=== PATIENT | female | born 1960 | race Caucasian/White ===

== ENCOUNTER 2017-02-02 20:45 | Inpatient (IN) | payer OTHER ==
--- NOTE | ~2017-02-02 | HP ---
History And Physical [address] [address] NAME: CHRISTINE YORK : 56 STATUS : ADM IN PAT#: [id number] AGE: 56 ADM/REG DATE : 02/03/17 MR#: [id number] REPORT SERV DATE: 02/03/17 DICTATED BY: HALEY NEAL DATE: 02/03/17 REPORT STATUS : Draft TRANSCRIBED BY: MODL DATE: 02/03/17 DATE OF ADMISSION: 02/03/2017 CHIEF COMPLAINT: A 56-year-old female, presenting with severe nausea, vomiting, abdominal pain, and uncontrolled blood sugars. HISTORY OF PRESENT ILLNESS: The patient's history was obtained through an interview with the patient and coupled with review of [facility] and [facility] medical records. The patient leading up to admission became increasingly ill with nausea, uncontrolled vomiting, and abdominal pain. She describes epigastric pain, "excruciating," 11/10 severity, without radiation, felt in the epigastric portion of her abdomen. The pain was actually relieved when she would vomit. She has had nausea on and off for several months with occasional feeling of early satiety. No shortness of breath. No chest pain. No cough. She felt lightheaded as if she might pass out, has felt very weak. She had a few episodes of diarrhea for about two days. She has been having recurrent urinary tract infections for several months as well, on several courses of Macrobid, but she has persistent dysuria and urinary frequency. She also has quite severe reflux symptoms. She admits her diabetes has been very poorly controlled recently with blood sugars often over 400. REVIEW OF SYSTEMS: Otherwise, 14-point review of systems was obtained and was negative. PAST MEDICAL HISTORY: 1. Peptic ulcer disease. 2. Diabetes, seen by Dr. Gonzales. 3. Colon polyps, seen by Dr. Ricci. 4. Asthma. 5. Negative cardiac stress test in 2008. PAST SURGICAL HISTORY: 1. Melanoma in 2003. 2. Cholecystectomy and appendectomy. 3. Hysterectomy. 4. Anal fistulotomy. History And Physical [address] [address] NAME: CHRISTINE YORK : 56 STATUS : ADM IN PAT#: [id number] AGE: 56 ADM/REG DATE : 02/03/17 MR#: [id number] REPORT SERV DATE: 02/03/17 DICTATED BY: HALEY NEAL DATE: 02/03/17 REPORT STATUS : Draft TRANSCRIBED BY: JAZMIN DATE: 02/03/17 ALLERGIES: STATINS. SOCIAL HISTORY: No tobacco abuse. No alcohol abuse. She is . Has children. Raises a 16-year-old granddaughter. Lives in [place], [place]. FAMILY HISTORY: Coronary artery disease. Father with CABG. Mother with breast cancer. CURRENT MEDICATIONS: Include vitamin D, Nexium 20 mg p.o. b.i.d., Diflucan 150 mg p.o. twice a week, Amaryl 2 mg with breakfast, Advil p.r.n., sliding-scale insulin, Tresiba 40 to 60 units subcutaneous at bedtime, levothyroxine 150 mcg p.o. daily, losartan 100 mg p.o. daily, metformin 500 mg in the morning and 1000 mg at night, Sanctura 20 mg p.o. b.i.d., and cranberry extract. PHYSICAL EXAMINATION: VITAL SIGNS: Temperature 98.3, pulse 85, blood pressure 147/94, respiratory rate 15, and O2 saturation 99% on room air. GENERAL: A pleasant, cooperative female, describing distress from nausea right now. HEENT: Pupils equal, round, and reactive to light. No conjunctival pallor. No scleral icterus. Nares are patent. Oropharynx is clear of obstruction. Moist mucous membranes. NECK: Trachea midline. No thyromegaly. Lymph: No cervical lymphadenopathy. No supraclavicular lymphadenopathy. RESPIRATORY: Clear to auscultation at bases. No wheezes, rales, or rhonchi. Normal respiratory effort. CARDIOVASCULAR: Regular rate and rhythm. No murmurs, rubs, or gallops. No extremity edema is appreciated. ABDOMEN: Significant epigastric abdominal pain. No guarding or rebound. Nondistended. Decreased bowel tones. No hepatosplenomegaly. DERMATOLOGICAL: Warm and dry extremities. No pallor. No cyanosis. PSYCHIATRIC: Normal affect. Good mood. Alert and oriented x3. LABORATORY DATA: White blood cell count 14, hemoglobin 16, and hematocrit 47. Serum acetone level positive. Sodium 135, potassium 4.4, chloride 100, bicarb 20, BUN 15, creatinine 1.0, and glucose 362. Urinalysis shows 25 white blood cells, large leukocyte esterase, positive nitrites. Lactic acid 1.8. STUDIES: A CT of the abdomen and pelvis shows no acute intraabdominal process. ASSESSMENT AND PLAN: 1. Gastroparesis, suspected diagnosis, check a gastric emptying study. If positive, we will begin Reglan. 2. Mild diabetic ketoacidosis, but we will start an insulin drip IV and check hemoglobin A1c. 3. Urinary tract infection. Check urine culture. Place on IV Rocephin. 4. Severe reflux symptoms. Continue proton pump inhibitor. History And Physical [address] [address] NAME: CHRISTINE YORK : 56 STATUS : ADM IN [facility]#: [id number] AGE: 56 ADM/REG DATE : 02/03/17 MR#: [id number] REPORT SERV DATE: 02/03/17 DICTATED BY: HALEY NEAL DATE: 02/03/17 REPORT STATUS : Draft TRANSCRIBED BY: JAZMIN DATE: 02/03/17 [facility]/JAZMIN Haley Neal M.D. / [id number] CC: MD Lona Duran M.D. Munford Yates III, M.D.
--- NOTE | ~2017-02-02 | DS ---
Discharge Summary [facility] [address] [facility] [place]. [address] NAME: CHRISTINE YORK : 56 STATUS : DIS IN PAT#: [id number] AGE: 56 ADM/REG DATE : 02/03/17 MR#: [id number] REPORT SERV DATE: 02/06/17 DICTATED BY: SATISH CALVERT DATE: 02/05/17 REPORT STATUS : Draft TRANSCRIBED BY: MODL DATE: 02/05/17 ADMISSION DATE: 02/03/2017 DISCHARGE DATE: 02/05/2017 DISCHARGE DIAGNOSES: 1. Gastroparesis, confirmed with a positive gastric emptying study. 2. Mild diabetic ketoacidosis, present on admission, resolved. 3. Urinary tract infection with pansensitive Escherichia coli as well as pansensitive Klebsiella. 4. Gastroesophageal reflux disease. CONSULTANTS: None. PROCEDURES: None. HOSPITAL COURSE: This is a 56-year-old lady who was admitted to the hospital with initial diagnosis of suspected gastroparesis, DKA, as well as urinary tract infections. For details, please refer to excellent H and P dictated by Dr. Ede Oscar. In summary, the patient was admitted and was treated with IV insulin drip. The patient also had a gastric emptying study done which was indeed positive and the patient was started on Reglan which she tolerated well. Of note, the patient has taken Reglan in the past without any issues. The patient used to have fairly good diabetic control. However, it has increasingly been difficult to control her diabetes due to the urinary tract infections. The patient's urine culture grew Klebsiella as well as Escherichia coli, both of which were pansensitive. The patient was treated empirically with IV Rocephin and patient is now being discharged to home with three additional days worth of Levaquin. The patient's gastroparesis was well controlled symptomatically, and the patient was able to tolerate p.o. diet, and the patient's DKA also had resolved, and the patient's blood sugars has been stable on twice daily dosing of Levemir at 20 units. The patient is used to taking 40 to 60 units of Tresiba at home, and she was advised to split the doses to 25 to 30 units in the morning and in evening. The patient was also given diabetic education prior to discharge. DISPOSITION: Home. DISCHARGE MEDICATIONS: 1. Levaquin 750 mg p.o. daily x3 days. 2. Reglan 10 mg p.o. before meals and at bedtime. 3. Tresiba, to split the dose from 40 to 60 units subcu q.h.s. to 25 to 30 units subcu b.i.d. Otherwise, no medication changes. FOLLOWUP: Please follow up with PCP in the next one to two weeks. A total of 25 minutes spent in coordinating this patient's discharge today. DICTATED BY: Satish Calvert MD Discharge Summary [address] [place] [address] NAME: CHRISTINE YORK : 56 STATUS : DIS IN PAT#: [id number] AGE: 56 ADM/REG DATE : 02/03/17 MR#: [id number] REPORT SERV DATE: 02/06/17 DICTATED BY: SATISH CALVERT DATE: 02/05/17 REPORT STATUS : Draft TRANSCRIBED BY: JAZMIN DATE: 02/05/17 [facility]/JAZ[place] Satish Calvert MD / [id number] CC: Satish Calvert MD [facility]
[~2017-02-02 20:45] MED LIST: AMARYL2 PO; COZAAR100 MG PO; GLUCOPHXR PO; GLUCOTROL5 PO; GLUCPH PO; GLUCXL2.5 PO; HUMALOG SC; HYDROCHLOROT25 MG PO; LANTUS SC; NEXIUM40 PO; OCUVITE PO; PRAVAC PO; PROAIR HFA INH; SYMLIN0.6 MG/ML SC; SYN.15 PO; SYNTHROID137 MCG PO; SYNTHROID175 MCG PO; VALTURNA PO; VASOTEC5 PO; VITD PO
[2017-02-02 21:18] LABS: BASOPHILS 0.1 %; BASOPHILS ABSOLUTE 0.02 10/3/uL (0.0-0.16); EOSINOPHILS 0.7 %; HEMATOCRIT 47.6 % (36.0-48.0); HEMOGLOBIN 16.8 g/dL (12.0-16.0); IMMATURE GRANULOCYTES 0.6 %; IMMATURE GRANULOCYTES ABSOLUTE 0.08 10/3/uL (0.0-0.11); LYMPHOCYTES 13.9 %; LYMPHOCYTES ABSOLUTE 1.96 10/3/uL (0.67-4.30); MEAN CORPUS HGB CONC 35.3 g/dL (32.0-36.0); MEAN CORPUSCULAR HEMOGLOB 30.2 pg (26.0-34.0); MEAN CORPUSCULAR VOLUME 85.5 fL (80-100); MEAN PLATELET VOLUME 10.1 fL (9.2-13.0); MONOCYTES 5.4 %; MONOCYTES ABSOLUTE 0.76 10/3/uL (0.21-1.20); NEUTROPHILS 79.3 %; NEUTROPHILS ABSOLUTE 11.16 10/3/uL (2.02-8.40); PLATELET COUNT 279 10/3/uL (150-400); RBC DISTRIBUTION WIDTH 13.1 % (12.0-16.0); RED CELL COUNT 5.57 10/6/uL (4.0-5.6)
[2017-02-02 21:19] LABS: ER CBC TAT 0 Hrs 10 Mins; MANUAL DIFF NO %; WHITE BLOOD CELLS 14.1 10/3/uL (4.5-10.5)
[2017-02-02 21:35] LABS: A/G RATIO 1.1 (0.7-1.9); ALBUMIN 4.2 G/DL (3.5-5.0); ALKALINE PHOSPHATASE 93 U/L (45-117); CALCIUM, SERUM 10.1 MG/DL (8.5-10.4); CHLORIDE, SERUM 100 MMOL/L (96-112); CO2 (CARBON DIOXIDE) 26 MMOL/L (24-34); GFR AFRICAN AMERICAN 72 ML/MIN (>=60); GFR NON AFRICAN AMERICAN 62 ML/MIN (>=60); GLOBULIN 3.9 G/DL (2.5-4.1); POTASSIUM, SERUM 4.4 MMOL/L (3.5-5.3); SGOT(AST) 16 U/L (5-40); SGPT(ALT) 35 U/L (5-65); SODIUM, SERUM 135 MMOL/L (135-148); TOTAL BILIRUBIN 0.7 MG/DL (0-1.2); TOTAL PROTEIN 8.1 G/DL (6.0-8.5)
[2017-02-02 21:40] LABS: BUN (BLOOD UREA NITROGEN) 15 MG/DL (6-23)
[2017-02-02 21:41] LABS: GLUCOSE, SERUM 362 MG/DL (60-99)
[2017-02-02 22:45] LABS: ASCORBIC ACID (UR NOT ORDER) NEG (NEG); BILIRUBIN, URINE NEGATIVE (NEG); ER URINALYSIS TAT 0 Hrs 13 Mins; KETONE, URINE 20 MG/DL (NEG); LEUKOCYTE ESTERASE(NOT OR LARGE (NEG); NITRITE (URINE) POS (NEG); WBC (NOT ORDERED) (RFLEX) 20 (0-5)
[2017-02-03] MEDS ORDERED: [UNRECOGNIZED DRUG - OTHER] PO (01:11)
[2017-02-03] MEDS ORDERED: AMARYL2 PO (01:11)
[2017-02-03] MEDS ORDERED: VITD PO (01:11)
[2017-02-03] MEDS ORDERED: FORTAMET500 MG PO (01:12)
[2017-02-03] MEDS ORDERED: COZAAR100 MG PO (01:12)
[2017-02-03] MEDS ORDERED: SYN.15 PO (01:12)
[2017-02-03] MEDS ORDERED: [UNRECOGNIZED DRUG - SUPPLY] (01:13)
[2017-02-03] MEDS ORDERED: FORTAMET1000 MG PO (01:13)
[2017-02-03] MEDS ORDERED: PRILOSEC OTC20 MG PO (01:14)
[2017-02-03] MEDS ORDERED: SANCTURA20 MG PO (01:14)
[2017-02-03] MEDS ORDERED: TRESIBA FL100 UNIT/1 SC (01:16)
[2017-02-03] MEDS ORDERED: NOVOPEN SC (01:16)
[2017-02-03] MEDS ORDERED: NEXIUM20 M1 PO (01:22)
[2017-02-03] MEDS ORDERED: TERCONAZOLE 0.8% V (01:24)
[2017-02-03] MEDS ORDERED: FLUCON150 PO (01:24)
[2017-02-03] MEDS ORDERED: ADVIL PO (01:26)
[2017-02-03 14:33] LABS: BASOPHILS 0.1 %; BASOPHILS ABSOLUTE 0.01 10/3/uL (0.0-0.16); EOSINOPHILS 3.7 %; EOSINOPHILS ABSOLUTE 0.31 10/3/uL (0.0-0.53); HEMOGLOBIN 13.6 g/dL (12.0-16.0); IMMATURE GRANULOCYTES 0.6 %; IMMATURE GRANULOCYTES ABSOLUTE 0.05 10/3/uL (0.0-0.11); LYMPHOCYTES 30.8 %; LYMPHOCYTES ABSOLUTE 2.59 10/3/uL (0.67-4.30); MEAN PLATELET VOLUME 9.8 fL (9.2-13.0); MONOCYTES 5.8 %; MONOCYTES ABSOLUTE 0.49 10/3/uL (0.21-1.20); NEUTROPHILS ABSOLUTE 4.97 10/3/uL (2.02-8.40); PLATELET COUNT 232 10/3/uL (150-400); RBC DISTRIBUTION WIDTH 13.5 % (12.0-16.0); RED CELL COUNT 4.69 10/6/uL (4.0-5.6)
[2017-02-03 14:36] LABS: HEMATOCRIT 41.4 % (36.0-48.0); MANUAL DIFF NO %; MEAN CORPUS HGB CONC 32.9 g/dL (32.0-36.0); MEAN CORPUSCULAR VOLUME 88.3 fL (80-100); WHITE BLOOD CELLS 8.4 10/3/uL (4.5-10.5)
[2017-02-03 14:48] LABS: INTERNATIONAL NORMAL RATI 1.1 UNITS (-); PARTIAL THROMBO TIME 32.1 SEC (22.5-37.2); PROTIME (NOT ORD) 14.3 SEC (12.0-14.5)
[2017-02-03 14:54] LABS: ALBUMIN 3.1 G/DL (3.5-5.0); ALKALINE PHOSPHATASE 67 U/L (45-117); BUN (BLOOD UREA NITROGEN) 12 MG/DL (6-23); CALCIUM, SERUM 8.2 MG/DL (8.5-10.4); CHLORIDE, SERUM 104 MMOL/L (96-112); CO2 (CARBON DIOXIDE) 30 MMOL/L (24-34); CREATININE 0.85 MG/DL (0.55-1.02); GFR AFRICAN AMERICAN 88 ML/MIN (>=60); GFR NON AFRICAN AMERICAN 76 ML/MIN (>=60); GLUCOSE, SERUM 187 MG/DL (60-99); POTASSIUM, SERUM 4.1 MMOL/L (3.5-5.3); SGOT(AST) 14 U/L (5-40); SGPT(ALT) 25 U/L (5-65); SODIUM, SERUM 140 MMOL/L (135-148); TOTAL BILIRUBIN 0.6 MG/DL (0-1.2); TOTAL PROTEIN 6.1 G/DL (6.0-8.5); TROPONIN I <0.02 NG/ML (<0.05)
[2017-02-04 06:12] LABS: BASOPHILS 0.1 %; BASOPHILS ABSOLUTE 0.01 10/3/uL (0.0-0.16); EOSINOPHILS 4.2 %; EOSINOPHILS ABSOLUTE 0.31 10/3/uL (0.0-0.53); HEMATOCRIT 42.1 % (36.0-48.0); IMMATURE GRANULOCYTES 0.7 %; IMMATURE GRANULOCYTES ABSOLUTE 0.05 10/3/uL (0.0-0.11); LYMPHOCYTES 33.2 %; LYMPHOCYTES ABSOLUTE 2.45 10/3/uL (0.67-4.30); MEAN CORPUS HGB CONC 33.3 g/dL (32.0-36.0); MEAN CORPUSCULAR HEMOGLOB 29.5 pg (26.0-34.0); MEAN CORPUSCULAR VOLUME 88.8 fL (80-100); MEAN PLATELET VOLUME 10.1 fL (9.2-13.0); MONOCYTES 5.8 %; MONOCYTES ABSOLUTE 0.43 10/3/uL (0.21-1.20); NEUTROPHILS ABSOLUTE 4.12 10/3/uL (2.02-8.40); PLATELET COUNT 246 10/3/uL (150-400); RBC DISTRIBUTION WIDTH 13.1 % (12.0-16.0); RED CELL COUNT 4.74 10/6/uL (4.0-5.6); WHITE BLOOD CELLS 7.4 10/3/uL (4.5-10.5)
[2017-02-04 06:13] LABS: MANUAL DIFF NO %
[2017-02-04 06:36] LABS: BUN (BLOOD UREA NITROGEN) 9 MG/DL (6-23); CALCIUM, SERUM 8.2 MG/DL (8.5-10.4); CHLORIDE, SERUM 109 MMOL/L (96-112); CO2 (CARBON DIOXIDE) 27 MMOL/L (24-34); CREATININE 0.84 MG/DL (0.55-1.02); GFR AFRICAN AMERICAN 89 ML/MIN (>=60); GFR NON AFRICAN AMERICAN 77 ML/MIN (>=60); GLUCOSE, SERUM 167 MG/DL (60-99); POTASSIUM, SERUM 3.7 MMOL/L (3.5-5.3); SODIUM, SERUM 143 MMOL/L (135-148)
[2017-02-04 07:17] LABS: PROCALCITONIN 0.06 ng/mL (<0.5)
[2017-02-05] MEDS ORDERED: REG PO (09:02)
[2017-02-05] MEDS ORDERED: PYR100B PO (09:03)
[2017-02-05] MEDS ORDERED: LEVAQUIN750 MG PO (09:04)
== END 2017-02-05 12:27 | disposition home or self-care (01) | DRG 74 ==
LOC: ER 20:45 → 4SO 02-03 00:55
PROVIDERS: Hospitalist; Internal Medicine; Nurse Practitioner
DX: E11.43 Type 2 diabetes mellitus with diabetic autonomic (poly)neuropathy (principal); N39.0 Urinary tract infection, site not specified; E13.10 Other specified diabetes mellitus with ketoacidosis without coma; K31.84 Gastroparesis; B96.20 Unspecified Escherichia coli [E. coli] as the cause of diseases classified elsewhere; K21.9 Gastro-esophageal reflux disease without esophagitis
CPT/HCPCS: 74176; 78264; 80048; 80053; 81001; 82009; 82962; 83036; 83605; 83690; 83735; 84145; 84443; 84484; 85025; 85610; 85730; 87040; 87077; 87086; 87186; 96374; 96375; 99285; A9270-GY; A9541; C9113; J2405